=== PATIENT | female | born 1980 | race Caucasian/White ===

== ENCOUNTER 2016-08-04 14:08 | Emergency (ER) | payer MEDICAID ==
[2016-08-04 14:37] VITALS: BP 123/68
--- NOTE | 2016-08-04 14:45 | ER Document Report ---
ED Medical Screen (RME) - General Stated Complaint: KNEE PAIN Mode of Arrival: Ambulatory Information source: Patient Notes: Patient complains of left knee pain for the past 3 days. Patient complains of swelling to the popliteal area. Patient denies any injury. Patient does report a history of arthritis. Patient complains of generalized fatigue as well as swollen lymph nodes in the neck for the past month. Patient also complains of vaginal discharge. Pt additionally c/o right foot pain with walking. Pt has seen her doctor, but has not been happy with his evaluation of her complaints. hx: Diabetes I have greeted and performed a rapid initial assessment of this patient. A comprehensive ED assessment and evaluation of the patient, analysis of test results and completion of the medical decision making process will be conducted by additional ED providers. TRAVEL OUTSIDE OF THE [place] IN LAST 30 DAYS: No - Related Data Allergies/Adverse Reactions: erythromycin base [Erythromycin Base] Allergy (Verified 05/29/16 20:25) Past Medical History - Past Medical History Cardiac Medical History: Reports: Hx Hypertension Endocrine Medical History: Reports: Hx Diabetes Mellitus Type 2 Musculoskeltal Medical History: Reports Hx Arthritis - bilat knee, left ankle, bilat hand Psychiatric Medical History: Reports: Hx Anxiety, Hx Depression - anxiety Past Surgical History: Reports: Hx Kidney (Renal Surgery) - L stents, removed, Hx Orthopedic Surgery - right great toe amputation - Immunizations Immunizations up to date: No Hx Diphtheria, Pertussis, Tetanus Vaccination: Yes Physical Exam - Vital signs Vitals: Temp Pulse Resp BP Pulse Ox 98.0 F 72 20 123/68 98 08/04/16 14:34 08/04/16 14:34 08/04/16 14:34 08/04/16 14:34 08/04/16 14:34 - Extremities General lower extremity: Tender - Left knee Course - Vital Signs Vital signs: Temp Pulse Resp BP Pulse Ox 98.0 F 72 20 123/68 98 08/04/16 14:34 08/04/16 14:34 08/04/16 14:34 08/04/16 14:34 08/04/16 14:34
--- NOTE | 2016-08-04 17:06 | ER Document Report ---
HPI - HPI Patient complains to provider of: KNEE PAIN Pain Level: 3 Context: Patient presents to the emergency department with complaints of left knee pain. As soon as I came in the room to talk the patient she began stating she wants to leave. She was very frustrated with her wait. She reports she's been moved from room to room and nothing has been done. She just wants work note wants to leave. - REPRODUCTIVE Reproductive: DENIES: : - DERM Skin Color: Normal Past Medical History - General Information source: Patient - Social History Smoking Status: Current Every Day Smoker Chew tobacco use (# tins/day): No Frequency of alcohol use: Occasional Drug Abuse: None Family History: Reviewed & Not Pertinent Patient has suicidal ideation: No Patient has homicidal ideation: No - Past Medical History Cardiac Medical History: Reports: Hx Hypertension Endocrine Medical History: Reports: Hx Diabetes Mellitus Type 2 Renal/ Medical History: Denies: Hx Peritoneal Dialysis Musculoskeltal Medical History: Reports Hx Arthritis - bilat knee, left ankle, bilat hand Psychiatric Medical History: Reports: Hx Anxiety, Hx Depression - anxiety Past Surgical History: Reports: Hx Kidney (Renal Surgery) - L stents, removed, Hx Orthopedic Surgery - right great toe amputation - Immunizations Immunizations up to date: No Hx Diphtheria, Pertussis, Tetanus Vaccination: Yes Vertical Provider Document - CONSTITUTIONAL Agree With Documented VS: Yes Exam Limitations: No Limitations General Appearance: No Apparent Distress - INFECTION CONTROL TRAVEL OUTSIDE OF THE [place] IN LAST 30 DAYS: No - HEENT HEENT: Atraumatic, Normocephalic - NECK Neck: Supple - RESPIRATORY Respiratory: No Respiratory Distress O2 Sat by Pulse Oximetry: 98 - CARDIOVASCULAR Cardiovascular: Regular Rate Course - Re-evaluation Re-evalutation: 08/04/16 17:10 Patient was very upset upon arrival to her room. There was nothing I could say or do to get her to stay. I instructed patient that we're very happy to take care of her I apologize for the wait. She reported that they tried to take her to xray without a test. Tried to reassure patient that we would shield her for her knee x-ray but she was not listening to me. No physical exam was done. pt to check out ama. I have consulted the attending provider dr garcia per [facility] guidelines - Vital Signs Vital signs: Temp Pulse Resp BP Pulse Ox 98.0 F 72 20 123/68 98 08/04/16 14:34 08/04/16 14:34 08/04/16 14:34 08/04/16 14:34 08/04/16 14:34 Discharge - Discharge Clinical Impression: Elevated blood pressure reading Knee pain Qualifiers: Laterality: left Chronicity: unspecified Qualified Code(s): M25.562 - Pain in left knee Condition: Stable Disposition: AGAINST MEDICAL ADVICE Additional Instructions: *You have been evaluated for knee pain *Monitor your blood pressure. Your blood pressure was elevated today. This may be because you were anxious, in pain or because you need medication. It is important to follow up with your primary care provider for full evaluation. *your exam wan not completed *Follow up with your primary care provider for evaluation this week *Take ibuprofen as indicated for pain *Return to ED for worsening condition, changes, needs Forms: Elevated Blood Pressure, Return to Work
[2016-08-04 17:17] LABS: APPEARANCE,URINE CLEAR; BILIRUBIN,URINE NEGATIVE (NEGATIVE); GLUCOSE, URINE NEGATIVE (NEGATIVE); KETONES,URINE NEGATIVE (NEGATIVE); LEUKOCYTE ESTERASE,URINE NEGATIVE (NEGATIVE); NITRITE,URINE NEGATIVE (NEGATIVE); PROTEIN,URINE NEGATIVE (NEGATIVE); URINE SPECIFIC GRAVITY 1.005; UROBILINOGEN,URINE NEGATIVE mg/dL (<2.0)
== END 2016-08-04 17:17 | disposition left against medical advice (07) ==
LOC: ER 14:08
DX: R03.0 Elevated blood-pressure reading, without diagnosis of hypertension (principal); M25.562 Pain in left knee; F17.200 Nicotine dependence, unspecified, uncomplicated; I10 Essential (primary) hypertension; E11.9 Type 2 diabetes mellitus without complications
CPT/HCPCS: 81001; 81025; 82962; 99283

== ENCOUNTER 2016-08-17 09:38 | Emergency (ER) | payer MEDICAID ==
[2016-08-17 09:44] VITALS: BP 136/80
[2016-08-17] MEDS ORDERED: ONDANSETRON 4 MG TAB.RAPDIS PO ONE (10:25)
--- NOTE | 2016-08-17 10:25 | ER Document Report ---
HPI - HPI Patient complains to provider of: nausea vomiting and diarrhea Onset: This morning Onset/Duration: Better Quality of pain: Cramping Pain Level: 3 Context: 35-year-old female developed nausea vomiting and diarrhea when she was at work this morning that made her go home. She states she has to go back to work. No abdominal pain at this time. The Zofran was just given that I ordered. Associated Symptoms: None Exacerbated by: Denies Relieved by: Denies Similar symptoms previously: No Recently seen / treated by doctor: No - ROS ROS below otherwise negative: Yes Systems Reviewed and Negative: Yes All other systems reviewed and negative - REPRODUCTIVE Reproductive: DENIES: : - DERM Skin Color: Normal Past Medical History - General Information source: Patient - Social History Smoking Status: Current Every Day Smoker Chew tobacco use (# tins/day): No Frequency of alcohol use: Occasional Drug Abuse: None Lives with: Family Family History: Reviewed & Not Pertinent Patient has suicidal ideation: No Patient has homicidal ideation: No - Past Medical History Cardiac Medical History: Reports: Hx Hypertension Endocrine Medical History: Reports: Hx Diabetes Mellitus Type 2 Renal/ Medical History: Denies: Hx Peritoneal Dialysis Musculoskeltal Medical History: Reports Hx Arthritis - bilat knee, left ankle, bilat hand Psychiatric Medical History: Reports: Hx Anxiety, Hx Depression - anxiety Past Surgical History: Reports: Hx Kidney (Renal Surgery) - L stents, removed, Hx Orthopedic Surgery - right great toe amputation - Immunizations Immunizations up to date: No Hx Diphtheria, Pertussis, Tetanus Vaccination: Yes Vertical Provider Document - CONSTITUTIONAL Agree With Documented VS: Yes Exam Limitations: No Limitations - INFECTION CONTROL TRAVEL OUTSIDE OF THE [place] IN LAST 30 DAYS: No - HEENT HEENT: Normocephalic. negative: Conjuctival Injection, Pharyngeal Erythema - NECK Neck: Supple. negative: Lymphadenopathy-Left, Lymphadenopathy-Right - RESPIRATORY Respiratory: Breath Sounds Normal, No Respiratory Distress O2 Sat by Pulse Oximetry: 98 - CARDIOVASCULAR Cardiovascular: Regular Rate, Regular Rhythm - GI/ABDOMEN Gastrointestinal: Abdomen Soft, Abdomen Non-Tender, No Organomegaly - MUSCULOSKELETAL/EXTREMETIES Musculoskeletal/Extremeties: MALISSA BARBOSA - NEURO Level of Consciousness: Awake, Alert Motor/Sensory: No Motor Deficit, No Sensory Deficit - DERM Integumentary: Warm, Dry, No Rash Course - Vital Signs Vital signs: Temp Pulse Resp BP Pulse Ox 97.9 F 84 16 136/80 H 98 08/17/16 09:44 08/17/16 09:44 08/17/16 09:44 08/17/16 09:44 08/17/16 09:44 Discharge - Discharge Clinical Impression: Vomiting and diarrhea Condition: Good Disposition: HOME, SELF-CARE Instructions: Vomiting ([facility]), Diarrhea, Nonspecific ([facility]), Antinausea Medication ([facility]) Additional Instructions: Drink plenty of fluids Advance diet as tolerated Return to the emergency room if worse Prescriptions: Ondansetron HCl [Zofran 4 mg Tablet] 1 - 2 tab PO Q4H PRN #30 tablet PRN Reason: Forms: Return to Work Referrals: CARLINE FLOOD MD [Primary Care Provider] - Follow up as needed
== END 2016-08-17 10:55 | disposition home or self-care (01) ==
LOC: ER 09:38
DX: R11.2 Nausea with vomiting, unspecified (principal); R19.7 Diarrhea, unspecified; F17.200 Nicotine dependence, unspecified, uncomplicated; I10 Essential (primary) hypertension; E11.9 Type 2 diabetes mellitus without complications
CPT/HCPCS: 99283; S0119

== ENCOUNTER 2016-09-01 21:19 | Emergency (ER) | payer MEDICAID ==
--- NOTE | 2016-09-01 22:54 | ER Document Report ---
ED Medical Screen (RME) - General Stated Complaint: ABDOMINAL PAIN/VAGINAL BLEEDING Notes: 35 yo female c/o vaginal bleeding x 2 weeks, lower abdominal pain. Pt taking oral contraception as prescribed. + urinary frequency. no fever. + nausea, no vomiting. pt has hx/o DM, psoriatic arthritis abdomen soft, mild suprapubic and LLQ tenderness. TRAVEL OUTSIDE OF THE [place] IN LAST 30 DAYS: No - Related Data Allergies/Adverse Reactions: erythromycin base [Erythromycin Base] Allergy (Verified 08/17/16 09:42) Past Medical History - Past Medical History Cardiac Medical History: Reports: Hx Hypertension Endocrine Medical History: Reports: Hx Diabetes Mellitus Type 2 Renal/ Medical History: Denies: Hx Peritoneal Dialysis Musculoskeltal Medical History: Reports Hx Arthritis - bilat knee, left ankle, bilat hand Psychiatric Medical History: Reports: Hx Anxiety, Hx Depression - anxiety Past Surgical History: Reports: Hx Kidney (Renal Surgery) - L stents, removed, Hx Orthopedic Surgery - right great toe amputation - Immunizations Immunizations up to date: No Hx Diphtheria, Pertussis, Tetanus Vaccination: Yes
[2016-09-01 23:24] LABS: ABSOLUTE BASOPHILS # (AUTO) 0.1 10^3/uL (0.0-0.2); ABSOLUTE EOSINOPHILS # (AUTO) 0.1 10^3/uL (0.0-0.6); ABSOLUTE LYMPHOCYTES (AUTO) 2.9 10^3/uL (0.5-4.7); ABSOLUTE MONOCYTES (AUTO) 0.6 10^3/uL (0.1-1.4); ABSOLUTE NEUT (AUTO) 9.5 10^3/uL (1.7-8.2); BASOPHILS % (AUTO) 0.4 % (0-2); EOSINOPHILS % (AUTO) 1.1 % (0-6); HEMATOCRIT 39.1 % (36.0-47.0); HEMOGLOBIN 13.1 g/dL (12.0-15.5); HGB HCT DIFFERENCE 0.2; MEAN CORPUSCULAR HEMOGLOBIN 28.6 pg (27.0-33.4); MEAN CORPUSCULAR HGB CONC 33.6 g/dL (32.0-36.0); MEAN CORPUSCULAR VOLUME 85 fl (80-97); MONOCYTES % (AUTO) 4.5 % (3-13); RED BLOOD COUNT 4.59 10^6/uL (3.72-5.28); WHITE BLOOD COUNT 13.2 10^3/uL (4.0-10.5)
[2016-09-01 23:38] LABS: APPEARANCE,URINE CLEAR; BILIRUBIN,URINE NEGATIVE (NEGATIVE); GLUCOSE, URINE NEGATIVE (NEGATIVE); KETONES,URINE NEGATIVE (NEGATIVE); LEUKOCYTE ESTERASE,URINE TRACE (NEGATIVE); NITRITE,URINE NEGATIVE (NEGATIVE); PROTEIN,URINE NEGATIVE (NEGATIVE); URINE SPECIFIC GRAVITY 1.005; UROBILINOGEN,URINE NEGATIVE mg/dL (<2.0)
--- NOTE | 2016-09-02 00:22 | ER Document Report ---
ED General - General Chief Complaint: Vaginal Bleeding Stated Complaint: ABDOMINAL PAIN/VAGINAL BLEEDING Notes: Patient is 35-year-old female presents with complaint of vaginal bleeding and stomach cramping. She says the pain in her stomach is like a typical menstrual cramp. She is currently on oral control and has been on it for a while. Patient denies any fevers. No infections. No abnormal vaginal discharge. Her last menstrual period was 2 weeks ago. She bled for a few days and then stop bleeding for several days. She then started bleeding again a week ago and is continued to bleed. There's been no clots. No fevers. No vomiting. This is her sixth . She has 3 live children. She had one elective . She had one miscarriage. TRAVEL OUTSIDE OF THE [place] IN LAST 30 DAYS: No - Related Data Allergies/Adverse Reactions: erythromycin base [Erythromycin Base] Allergy (Verified 09/01/16 22:54) Past Medical History - Social History Smoking Status: Current Every Day Smoker Chew tobacco use (# tins/day): No Frequency of alcohol use: Occasional Drug Abuse: None Family History: Reviewed & Not Pertinent Patient has suicidal ideation: No Patient has homicidal ideation: No - Past Medical History Cardiac Medical History: Reports: Hx Hypertension Endocrine Medical History: Reports: Hx Diabetes Mellitus Type 2 Renal/ Medical History: Denies: Hx Peritoneal Dialysis Musculoskeltal Medical History: Reports Hx Arthritis - bilat knee, left ankle, bilat hand Psychiatric Medical History: Reports: Hx Anxiety, Hx Depression - anxiety Past Surgical History: Reports: Hx Kidney (Renal Surgery) - L stents, removed, Hx Orthopedic Surgery - right great toe amputation - Immunizations Immunizations up to date: No Hx Diphtheria, Pertussis, Tetanus Vaccination: Yes Review of Systems - Review of Systems Notes: My Normal Review Basic REVIEW OF SYSTEMS: CONSTITUTIONAL : Denies fever, chills, or sweats. Denies recent illness. EENT: Denies eye, ear, throat, or mouth pain or symptoms. Denies nasal or sinus congestion. RESPIRATORY: Denies cough, cold, or chest congestion. Denies shortness of breath, difficulty breathing, or wheezing. GASTROINTESTINAL: Denies abdominal pain. Denies nausea, vomiting, or diarrhea. Denies constipation. Last BM: GENITOURINARY: Denies difficulty urinating, painful urination, burning, frequency, or blood in urine. FEMALE GENITOURINARY: Vaginal bleeding. MUSCULOSKELETAL: Denies neck or back pain or joint pain or swelling. SKIN: Denies rash or skin lesions. HEMATOLOGIC : Denies easy bruising or bleeding. NEUROLOGICAL: Denies altered mental status or loss of consciousness. Denies headache. Denies weakness or paralysis or loss of use of either side. Denies problems with gait or speech. Denies sensory or motor loss. ALL OTHER SYSTEMS REVIEWED AND NEGATIVE. Physical Exam - Vital signs Vitals: Temp Pulse Resp BP Pulse Ox 98.1 F 72 16 124/65 100 09/01/16 22:50 09/01/16 22:50 09/01/16 22:50 09/01/16 22:50 09/01/16 22:50 - Notes Notes: General Appearance: Well nourished, alert, cooperative, no acute distress, no obvious discomfort. Vitals: reviewed, See vital signs table. Head: no swelling or tenderness to the head Eyes: PERRL, EOMI, Conjuctiva clear Mouth: No decreasd moisture Neck: Supple, no neck tenderness, No thyromegaly Lungs: No wheezing, No rales, No rhonci, No accessory muscle use, good air exchange bilaterally. Heart: Normal rate, Regular rythm, No murmur, no rub Abdomen: Normal BS, soft, No rigidity, No abdominal tenderness, No guarding, no rebound, no abdominal masses, no organomegaly Pelvic exam: Normal external genitalia. Cervix is soft. It is partially closed. Small to moderate blood in vaginal vault. Extremities: strength 5/5 in all extremities, good pulses in all extremities, no swelling or tenderness in the extremities, no edema. Skin: warm, dry, appropriate color, no rash Neuro: speech clear, oriented x 3, normal affect, responds appropriately to questions. Course - Vital Signs Vital signs: Temp Pulse Resp BP Pulse Ox 98.1 F 72 16 124/65 100 09/01/16 22:50 09/01/16 22:50 09/01/16 22:50 09/01/16 22:50 09/01/16 22:50 - Laboratory Result Diagrams: 09/01/16 23:08 09/02/16 01:05 Laboratory results interpreted by me: 09/01/16 09/01/16 09/01/16 23:08 23:08 23:08 WBC 13.2 H Absolute Neutrophils 9.5 H Calcium Total Protein Serum HCG, Qual POSITIVE H Beta HCG, Quant Urine Blood LARGE H Ur Leukocyte Esterase TRACE H 09/02/16 01:05 WBC Absolute Neutrophils Calcium 10.8 H Total Protein 8.5 H Serum HCG, Qual Beta HCG, Quant 754.74 H Urine Blood Ur Leukocyte Esterase - Transfer of Care Notes: 09/02/16 02:27 Patient's ultrasound did not show each uterine or extra in . I suspect that she most likely is having a miscarriage in October of our a past based on the amount of bleeding that she's been having. She may also have a very early but this is unlikely with amount of bleeding she is having. Her hCG levels only 734. Is also slight possibly she have an ectopic but this is also less likely. I explained all this to the patient verbally. She is understanding of this. I explained to her the importance of having her hCG level rechecked in 3 days. She agrees to have this performed. I encourage her to return to ER medially if she has heavy bleeding, severe pain, or feels unwell. Patient will be given Rhogam. Dictation of this chart was performed using voice recognition software; therefore, there may be some unintended grammatical errors. Discharge - Discharge Clinical Impression: Vaginal bleeding in Qualifiers: Trimester: first trimester Qualified Code(s): O46.91 - Antepartum hemorrhage, unspecified, first trimester Condition: Good Disposition: HOME, SELF-CARE Additional Instructions: Your beta hCG ( hormone level) is 734. Your ultrasound cannot see a at this time. With amount of bleeding that you have this most likely suggest that you have a miscarriage. There is still a chance he could have an ectopic . This is much less likely however not of the complete realm a possibility. There is also small possibility that you could have a that is just not showing up on ultrasound. Because of this and certainly it's very important that you have your hCG level rechecked in 3 days. You can follow -up with her doctor or come back here to have this performed. You must return to ER immediately if you have worsening pain, heavy bleeding, or fevers. Forms: Return to Work
[2016-09-02 01:47] LABS: ALANINE AMINOTRANSFERASE 30 U/L (9-52); ALKALINE PHOSPHATASE 65 U/L (38-126); ANION GAP 13 (5-19); ASPARTATE AMINO TRANSFERASE 16 U/L (14-36); BILIRUBIN,TOTAL 0.7 mg/dL (0.2-1.3); BLOOD UREA NITROGEN 10 mg/dL (7-20); CALCIUM 10.8 mg/dL (8.4-10.2); CARBON DIOXIDE 27 mmol/L (22-30); CHLORIDE 101 mmol/L (98-107); CREATININE RESULT 0.63 mg/dL (0.52-1.25); GLUCOSE 84 mg/dL (75-110); LIPASE 65.6 U/L (23-300); POTASSIUM 4.8 mmol/L (3.6-5.0); SODIUM 140.6 mmol/L (137-145); TOTAL PROTEIN 8.5 g/dL (6.3-8.2)
[2016-09-02 03:13] VITALS: BP 122/74
== END 2016-09-02 03:08 | disposition home or self-care (01) ==
LOC: ER 21:19
DX: O20.9 Hemorrhage in early pregnancy, unspecified (principal); O26.891 Other specified pregnancy related conditions, first trimester; R10.9 Unspecified abdominal pain; O99.331 Smoking (tobacco) complicating pregnancy, first trimester; F17.200 Nicotine dependence, unspecified, uncomplicated; O10.911 Unspecified pre-existing hypertension complicating pregnancy, first trimester; O24.111 Pre-existing type 2 diabetes mellitus, in pregnancy, first trimester; E11.9 Type 2 diabetes mellitus without complications; Z3A.01 Less than 8 weeks gestation of pregnancy; Z79.3 Long term (current) use of hormonal contraceptives
CPT/HCPCS: 99284; 86900; 86901; 36415; 86850; 84702; 83690; 84703; 85025; 80053; 81001; 76817; 93976; J2790

== ENCOUNTER → 2016-09-06 | Outpatient (CLI) | payer MEDICAID | LOC: OD 11:59 | PROVIDERS: ATTEND Family Medicine | DX: Z34.81 Encounter for supervision of other normal pregnancy, first trimester (principal) | CPT/HCPCS: 36415; 84702 ==

== ENCOUNTER 2016-09-09 16:47 | Day surgery (SDC) | payer MEDICAID ==
[~2016-09-09 16:47] MED LIST: GLYCOPYRROLATE INJ 0.4 MG/2 ML VIAL ONE; METOCLOPRAMIDE HCL INJ/PF 10 MG/2 ML SDV ONE; NEOSTIGMINE METHYLSULFATE 10 MG/10 ML VIAL ONE; ONDANSETRON HCL INJ/PF 4 MG/2 ML SDV ONE; PHENYLEPHRINE HCL INJ/PF 10 MG/1 ML SDV ONE; ROCURONIUM BROMIDE INJ 50 MG/5 ML VIAL IV ONE; SUCCINYLCHOLINE CHLORIDE INJ 200 MG/10 ML VIAL ONE
[2016-09-09] MEDS ORDERED: RINGERS SOLUTION,LACTATED 1,000 ML IV PRN ×2 (17:29→21:33)
[2016-09-09 17:43] LABS: ABSOLUTE EOSINOPHILS # (AUTO) 0.1 10^3/uL (0.0-0.6); ABSOLUTE LYMPHOCYTES (AUTO) 2.2 10^3/uL (0.5-4.7); ABSOLUTE MONOCYTES (AUTO) 0.6 10^3/uL (0.1-1.4); ABSOLUTE NEUT (AUTO) 7.6 10^3/uL (1.7-8.2); BASOPHILS % (AUTO) 0.3 % (0-2); EOSINOPHILS % (AUTO) 1.1 % (0-6); HEMATOCRIT 39.9 % (36.0-47.0); HEMOGLOBIN 13.5 g/dL (12.0-15.5); HGB HCT DIFFERENCE 0.6; LYMPHOCYTES % (AUTO) 21.1 % (13-45); MEAN CORPUSCULAR HEMOGLOBIN 28.8 pg (27.0-33.4); MEAN CORPUSCULAR VOLUME 85 fl (80-97); MONOCYTES % (AUTO) 5.8 % (3-13); RED BLOOD COUNT 4.71 10^6/uL (3.72-5.28); SEGMENTED NEUTROPHILS % (AUTO) 71.7 % (42-78); WHITE BLOOD COUNT 10.6 10^3/uL (4.0-10.5)
[2016-09-09] MEDS ORDERED: CEFAZOLIN 1 GM/D5W RTU 1 GM/50 ML RTUPB IV PRN (17:45)
[2016-09-09] MEDS ORDERED: BUPIVACAINE HCL 0.25 % INJ/PF (2.5 MG/1 ML) 30 ML VIAL ONE (17:49)
[2016-09-09] MEDS ORDERED: MIDAZOLAM 2 MG/2 ML INJ ONE (18:06)
[2016-09-09] MEDS ORDERED: ACETAMINOPHEN 100 ML IV ONE (18:06)
[2016-09-09] MEDS ORDERED: FENTANYL CITRATE INJ/PF 250 MCG/5 ML AMPULE ONE (18:06)
[2016-09-09] MEDS ORDERED: PROPOFOL INJ 200 MG/20 ML VIAL IV ONE (18:06)
[2016-09-09] MEDS ORDERED: MORPHINE SULFATE 10 MG/ML INJ ONE (18:07)
[2016-09-09] MEDS ORDERED: DIPHENHYDRAMINE HCL 50 MG/ML VIAL IV PRN (19:02)
[2016-09-09] MEDS ORDERED: MEPERIDINE HCL/PF INJ 25 MG/1 ML DISP.SYRIN IV PRN (19:02)
[2016-09-09] MEDS ORDERED: PROMETHAZINE HCL INJ 25 MG/1 ML VIAL IV PRN ×2 (19:02)
[2016-09-09] MEDS ORDERED: MORPHINE SULFATE 10 MG/ML INJ IV PRN (19:02)
[2016-09-09] MEDS ORDERED: FENTANYL CITRATE INJ/PF 100 MCG/2 ML AMPUL IV PRN ×3 (19:02)
[2016-09-09] MEDS: FENTANYL CITRATE INJ/PF 100 MCG/2 ML AMPUL ONE ×2 (19:55→20:12)
[2016-09-09] MEDS ORDERED: KETOROLAC TROMETHAMINE INJ/PF 30 MG/1 ML SDV ONE (20:53)
[2016-09-09] MEDS ORDERED: OXYCODONE-ACETAMINOPHEN 5-325 MG TABLET PO PRN (21:32)
[2016-09-09] MEDS: OXYCODONE-ACETAMINOPHEN 5-325 MG TABLET PO PRN (22:17)
[2016-09-09] MEDS ORDERED: CLONAZEPAM 1 MG TABLET PO PRN (22:23)
[2016-09-09] MEDS ORDERED: ZOLPIDEM TARTRATE 5 MG TABLET ONE (23:01)
[2016-09-10] MEDS: OXYCODONE-ACETAMINOPHEN 5-325 MG TABLET PO PRN ×2 (02:32→07:23)
[2016-09-10 09:26] VITALS: BP 130/82
[2016-09-10] MEDS ORDERED: LISINOPRIL 10 MG TABLET PO SCH (10:00)
[2016-09-10] MEDS ORDERED: (PENDING PHARMACY ID) (Lisinopril [Zestril] 20 MG) PO SCH (10:00)
[2016-09-10] MEDS ORDERED: IBUPROFEN 600 MG TABLET PO SCH (10:00)
--- NOTE | 2016-09-10 13:51 | OPERATIVE REPORT E ---
Operative Report NAME: SALIMA DANIELLE : 1980 AGE: 35Y DATE OF SURGERY: 09/09/2016 ROOM: 228 PREOPERATIVE DIAGNOSES: 1. Ectopic . 2. Undesired fertility. POSTOPERATIVE DIAGNOSES: 1. Ectopic . 2. Undesired fertility. OPERATION: Laparoscopic right salpingectomy and left tubal ligation with Filshie clip. SURGEON: DON SENIOR M.D. ANESTHESIA: General endotracheal. ESTIMATED BLOOD LOSS: 20 mL. TISSUE REMOVED OR ALTERED: Specimen to Pathology: Right fallopian tube containing ectopic. FINDINGS: There was a small amount of blood in the pelvis, approximately 50 to 100 mL. There was a right ectopic in the right fallopian tube. There were adhesions at the posterior aspect of the uterus to the rectosigmoid with changes consistent with endometriosis. There were also some filmy adhesions in the anterior cul-de-sac. The left tube and ovary appeared normal. DESCRIPTION OF PROCEDURE: After discussing risks, benefits, and alternatives of the procedure and obtaining informed consent, the patient was taken to the operating room where general anesthesia was achieved. She was positioned in the dorsal lithotomy position, prepped and draped in the usual standard fashion. Bladder was drained via in-and-out catheterization. A speculum was placed in the vagina and a Proxio uterine manipulator placed. The speculum was removed. Attention was turned to the patient's abdomen. The inferior aspect of the umbilicus was grasped with Allis clamps. The trocar sites were all premedicated with 0.25% Marcaine with epinephrine. A 10 mm incision was made in the infraumbilical fold. The abdomen was entered sharply under direct visualization. An Origin trocar was placed under direct visualization and the balloon insufflated. The abdomen was insufflated and the patient placed in Trendelenburg. The pelvis was surveyed with the findings noted above. A right lower quadrant 8 mm trocar was placed under direct visualization as well as an 8 mm suprapubic trocar. After placement of the trocars, the pelvis was surveyed with the findings noted above. A Filshie clip was placed across the isthmic portion of the left fallopian tube. The LigaSure device was called for, and the ectopic was removed using a combination of cut and COAG to perform salpingectomy on the patient's right. Excellent hemostasis was observed. The camera was placed in the right lower quadrant trocar, and an EndoCatch bag was placed through the umbilical trocar. The ectopic was delivered into the EndoCatch bag and it was removed through the umbilical port site. The Origin trocar was then replaced. The pelvis was irrigated and hemostasis again assured under low pressure. The trocars were then removed under direct visualization from the suprapubic and right lower quadrant sites. The abdomen was completely desufflated and the Origin trocar removed. The fascia at the umbilicus was closed with #0-Vicryl. This was done in an interrupted fashion. The skin incisions were closed with 3-0 Vicryl in a subcuticular fashion and bandages applied. The Hulka uterine manipulator was removed and hemostasis assured at the tenaculum site. The patient was taken out of dorsal lithotomy, extubated, and to recovery in stable condition. All sponge, needle, lap, and instrument counts were correct x2. DICTATING PHYSICIAN: DON SENIOR M.D. [id number] Y#: [id number] ID: [id number] JOB#: [id number] ACCT: [id number] cc:DON SENIOR M.D. >
[2016-09-10] MEDS ORDERED: ZOLPIDEM TARTRATE 5 MG TABLET PO SCH (22:00)
== END 2016-09-10 09:58 | disposition home or self-care (01) ==
LOC: UNDOADMIN 16:47 → 2S 16:47 → OROUT 16:47 → UNDODISIN 09-10 09:58 → EDSTATUS 09-10 13:55
PROVIDERS: ATTEND Obstetrics & Gynecology
PROC: 0UT54ZZ Resection of Right Fallopian Tube, Percutaneous Endoscopic Approach (ICD-10-PCS; 2016-09-09)
PROC: 0UL Female Reproductive System, Occlusion (ICD-10-PCS; 2016-09-09)
PROC: 10T24ZZ Resection of Products of Conception, Ectopic, Percutaneous Endoscopic Approach (ICD-10-PCS; principal; 2016-09-09 18:00)
DX: I10 Essential (primary) hypertension (principal); N73.6 Female pelvic peritoneal adhesions (postinfective); E11.9 Type 2 diabetes mellitus without complications; F32.9 Major depressive disorder, single episode, unspecified; F41.9 Anxiety disorder, unspecified; F17.210 Nicotine dependence, cigarettes, uncomplicated; Z79.84 Long term (current) use of oral hypoglycemic drugs; Z79.899 Other long term (current) drug therapy; Z79.1 Long term (current) use of non-steroidal anti-inflammatories (NSAID); Z88.1 Allergy status to other antibiotic agents
CPT/HCPCS: 86900; 86901; 36415; 86870; 86850; 82962; 85025; 88305 ×2; 59151; 58671; J2250; J0690; J3490 ×4; J3010 ×2; J1885; J2765; J2270; J2370; J0330; J2405; S0020; J2704; J0131; 840

== ENCOUNTER 2016-09-16 11:10 | Emergency (ER) | payer OTHER, MEDICAID ==
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
[2016-09-16 11:23] VITALS: BP 115/68
[2016-09-16] MEDS ORDERED: ACETAMINOPHEN 325 MG TABLET PO ONE (11:27)
[2016-09-16 11:47] LABS: ABSOLUTE BASOPHILS # (AUTO) 0.1 10^3/uL (0.0-0.2); ABSOLUTE EOSINOPHILS # (AUTO) 0.2 10^3/uL (0.0-0.6); ABSOLUTE LYMPHOCYTES (AUTO) 1.4 10^3/uL (0.5-4.7); ABSOLUTE MONOCYTES (AUTO) 0.4 10^3/uL (0.1-1.4); ABSOLUTE NEUT (AUTO) 7.6 10^3/uL (1.7-8.2); BASOPHILS % (AUTO) 0.7 % (0-2); EOSINOPHILS % (AUTO) 1.7 % (0-6); HEMATOCRIT 37.8 % (36.0-47.0); HEMOGLOBIN 12.9 g/dL (12.0-15.5); HGB HCT DIFFERENCE 0.9; LYMPHOCYTES % (AUTO) 14.6 % (13-45); MEAN CORPUSCULAR HEMOGLOBIN 29.1 pg (27.0-33.4); MEAN CORPUSCULAR HGB CONC 34.1 g/dL (32.0-36.0); MEAN CORPUSCULAR VOLUME 85 fl (80-97); MONOCYTES % (AUTO) 4.6 % (3-13); RED BLOOD COUNT 4.44 10^6/uL (3.72-5.28); SEGMENTED NEUTROPHILS % (AUTO) 78.4 % (42-78); WHITE BLOOD COUNT 9.7 10^3/uL (4.0-10.5)
[2016-09-16 12:11] LABS: ALANINE AMINOTRANSFERASE 33 U/L (9-52); ALKALINE PHOSPHATASE 45 U/L (38-126); ANION GAP 9 (5-19); ASPARTATE AMINO TRANSFERASE 19 U/L (14-36); BILIRUBIN,DIRECT 0.2 mg/dL (0.0-0.4); BILIRUBIN,TOTAL 0.6 mg/dL (0.2-1.3); BLOOD UREA NITROGEN 13 mg/dL (7-20); CALCIUM 9.5 mg/dL (8.4-10.2); CARBON DIOXIDE 28 mmol/L (22-30); CHLORIDE 104 mmol/L (98-107); CREATININE RESULT 0.61 mg/dL (0.52-1.25); GLUCOSE 98 mg/dL (75-110); POTASSIUM 4.8 mmol/L (3.6-5.0); SODIUM 141.3 mmol/L (137-145); TOTAL PROTEIN 6.6 g/dL (6.3-8.2)
[2016-09-16 13:54] LABS: APPEARANCE,URINE SLIGHTLY-CLOUDY; BILIRUBIN,URINE NEGATIVE (NEGATIVE); GLUCOSE, URINE NEGATIVE (NEGATIVE); KETONES,URINE NEGATIVE (NEGATIVE); LEUKOCYTE ESTERASE,URINE SMALL (NEGATIVE); NITRITE,URINE NEGATIVE (NEGATIVE); PROTEIN,URINE 30 mg/dL (NEGATIVE); URINE SPECIFIC GRAVITY 1.026
== END 2016-09-16 14:00 | disposition left against medical advice (07) ==
LOC: ER 11:10
DX: Z53.9 Procedure and treatment not carried out, unspecified reason (principal); R10.9 Unspecified abdominal pain; R55 Syncope and collapse; V87.7XXA Person injured in collision between other specified motor vehicles (traffic), initial encounter
CPT/HCPCS: 36415; 80053; 81001; 84702; 85025; 99281

== ENCOUNTER 2017-02-27 16:11 | Emergency (ER) | payer SELFPAY ==
[2017-02-27 16:27] VITALS: BP 132/85
--- NOTE | 2017-02-27 17:17 | ER Document Report ---
ED Medical Screen (RME) - General Chief Complaint: Abdominal Pain Stated Complaint: ABDOMINAL PAIN Time Seen by Provider: 02/27/17 17:13 Mode of Arrival: Ambulatory Information source: Patient Notes: 36-year-old female with no prior medical problems who presents to the emergency room with left lower quadrant tenderness. Patient does state she has had some lower back discomfort as well. Patient does report having a vaginal discharge. Patient has had a history of an ectopic with removal of the right fallopian tube. She had a left fallopian tube ligation at that time. She states she has had intermittent pain since that time (5 months ago). TRAVEL OUTSIDE OF THE [place] IN LAST 30 DAYS: No - Related Data Allergies/Adverse Reactions: latex Allergy (Unknown, Verified 02/27/17 16:27) erythromycin base [Erythromycin Base] Allergy (Verified 02/27/17 16:27) Past Medical History - Social History Chew tobacco use (# tins/day): No Frequency of alcohol use: None Drug Abuse: None - Past Medical History Cardiac Medical History: Reports: Hx Hypertension Endocrine Medical History: Reports: Hx Diabetes Mellitus Type 2 Renal/ Medical History: Denies: Hx Peritoneal Dialysis Musculoskeltal Medical History: Reports Hx Arthritis - bilat knee, left ankle, bilat hand Psychiatric Medical History: Reports: Hx Anxiety, Hx Depression - anxiety Past Surgical History: Reports: Hx Kidney (Renal Surgery) - L stents, removed, Hx Orthopedic Surgery - right great toe amputation - Immunizations Immunizations up to date: No Hx Diphtheria, Pertussis, Tetanus Vaccination: Yes Physical Exam - Vital signs Vitals: Temp Pulse Resp BP Pulse Ox 99.0 F 72 18 132/85 H 98 02/27/17 16:26 02/27/17 16:26 02/27/17 16:26 02/27/17 16:26 02/27/17 16:26 Course - Vital Signs Vital signs: Temp Pulse Resp BP Pulse Ox 99.0 F 72 18 132/85 H 98 02/27/17 16:26 02/27/17 16:26 02/27/17 16:26 02/27/17 16:26 02/27/17 16:26
[2017-02-27 17:39] LABS: ABSOLUTE BASOPHILS # (AUTO) 0.1 10^3/uL (0.0-0.2); ABSOLUTE EOSINOPHILS # (AUTO) 0.1 10^3/uL (0.0-0.6); ABSOLUTE LYMPHOCYTES (AUTO) 2.3 10^3/uL (0.5-4.7); ABSOLUTE MONOCYTES (AUTO) 0.4 10^3/uL (0.1-1.4); ABSOLUTE NEUT (AUTO) 7.7 10^3/uL (1.7-8.2); BASOPHILS % (AUTO) 0.5 % (0-2); EOSINOPHILS % (AUTO) 1.1 % (0-6); HEMOGLOBIN 14.8 g/dL (12.0-15.5); HGB HCT DIFFERENCE 1.4; LYMPHOCYTES % (AUTO) 21.9 % (13-45); MEAN CORPUSCULAR HEMOGLOBIN 27.9 pg (27.0-33.4); MEAN CORPUSCULAR HGB CONC 34.4 g/dL (32.0-36.0); MEAN CORPUSCULAR VOLUME 81 fl (80-97); MONOCYTES % (AUTO) 3.3 % (3-13); RED BLOOD COUNT 5.29 10^6/uL (3.72-5.28); RED CELL DISTRIBUTION WIDTH 14.4 % (11.5-14.0); SEGMENTED NEUTROPHILS % (AUTO) 73.2 % (42-78); WHITE BLOOD COUNT 10.6 10^3/uL (4.0-10.5)
[2017-02-27 17:41] LABS: APPEARANCE,URINE SLIGHTLY-CLOUDY; BILIRUBIN,URINE NEGATIVE (NEGATIVE); GLUCOSE, URINE NEGATIVE (NEGATIVE); KETONES,URINE NEGATIVE (NEGATIVE); LEUKOCYTE ESTERASE,URINE TRACE (NEGATIVE); NITRITE,URINE POSITIVE (NEGATIVE); PROTEIN,URINE NEGATIVE (NEGATIVE); URINE SPECIFIC GRAVITY 1.012; UROBILINOGEN,URINE NEGATIVE mg/dL (<2.0)
[2017-02-27 18:00] LABS: ALANINE AMINOTRANSFERASE 27 U/L (9-52); ALBUMIN 4.7 g/dL (3.5-5.0); ALKALINE PHOSPHATASE 65 U/L (38-126); ANION GAP 14 (5-19); ASPARTATE AMINO TRANSFERASE 17 U/L (14-36); BILIRUBIN,DIRECT 0.4 mg/dL (0.0-0.4); BILIRUBIN,TOTAL 0.8 mg/dL (0.2-1.3); BLOOD UREA NITROGEN 13 mg/dL (7-20); CALCIUM 10.1 mg/dL (8.4-10.2); CARBON DIOXIDE 25 mmol/L (22-30); CHLORIDE 101 mmol/L (98-107); CREATININE RESULT 0.75 mg/dL (0.52-1.25); GLUCOSE 137 mg/dL (75-110); POTASSIUM 4.1 mmol/L (3.6-5.0); SODIUM 140.1 mmol/L (137-145); TOTAL PROTEIN 7.8 g/dL (6.3-8.2)
--- NOTE | 2017-02-27 19:10 | RADIOLOGY REPORT (SQ) ---
EXAM DESCRIPTION: U/S NON OB PEL TV W/DOPPLER COMPLETED DATE/TIME: 02/27/2017 7:00 pm REASON FOR STUDY: left adnexal pain COMPARISON: None. TECHNIQUE: Dynamic and static grayscale images acquired of the pelvis via transvaginal approach and recorded on PACS. Additional selected color Doppler and spectral images recorded. LIMITATIONS: None. FINDINGS: UTERUS: Contour normal. No mass. ENDOMETRIAL STRIPE: No focal or generalized thickening. No masses. CERVIX: Small nabothian cysts. RIGHT OVARY: 2.1 cm cyst. RIGHT OVARY DOPPLER: Normal arterial vascular flow without evidence for torsion. LEFT OVARY: 2.2 cyst. LEFT OVARY DOPPLER: Normal arterial vascular flow without evidence for torsion. FREE FLUID: None noted. OTHER: No other significant finding. MEASUREMENTS: UTERUS: 9.0 x 5.6 x 4.3 cm ENDOMETRIAL STRIPE: 9 mm RIGHT OVARY: 3.4 x 1.7 x 1.8 cm LEFT OVARY: 3.5 x 2.3 x 1.7 cm IMPRESSION: Age-appropriate exam. TECHNICAL DOCUMENTATION: JOB ID: [id number]- All Rights Reserved
--- NOTE | 2017-02-27 19:37 | ER Document Report ---
ED GI/ - General Chief Complaint: Abdominal Pain Stated Complaint: ABDOMINAL PAIN Time Seen by Provider: 02/27/17 17:13 Mode of Arrival: Ambulatory Information source: Patient TRAVEL OUTSIDE OF THE U.S. IN LAST 30 DAYS: No - HPI Patient complains to provider of: Pelvic pain Onset: Other - 2-3 days Timing/Duration: Persistent, Worse Quality of pain: Achy, Cramping Severity at maximum: Moderate Severity in ED: Moderate Pain Level: 3 Location: Pelvis Associated symptoms: Vaginal discharge Exacerbated by: Denies Relieved by: Denies Similar symptoms previously: No Recently seen / treated by doctor: No Notes: 02/27/17 19:36 Patient is a 36-year-old female presenting to the emergency room today complaining of left lower pelvic pain that started a few days ago but worsened today, she states over the past few days she has had dull achy pain in the low back with an occasional pinching sensation, symptoms have increased over the last 4 hours prompting her to come to the emergency room, she denies any nausea , vomiting or diarrhea, no fever or chills, no dysuria or hematuria, she does report having irregular menstrual cycles over the past 5 months since having a ectopic requiring surgery with fallopian tube removal, she also had the other fallopian tube clipped at the time, she reports some milky white discharge with no odor - Related Data Allergies/Adverse Reactions: latex Allergy (Unknown, Verified 02/27/17 16:27) erythromycin base [Erythromycin Base] Allergy (Verified 02/27/17 16:27) Past Medical History - General Information source: Patient - Social History Smoking Status: Current Every Day Smoker Chew tobacco use (# tins/day): No Frequency of alcohol use: None Drug Abuse: None Family History: Reviewed & Not Pertinent - Past Medical History Cardiac Medical History: Reports: Hx Hypertension Endocrine Medical History: Reports: Hx Diabetes Mellitus Type 2 Renal/ Medical History: Denies: Hx Peritoneal Dialysis Musculoskeltal Medical History: Reports Hx Arthritis - bilat knee, left ankle, bilat hand Psychiatric Medical History: Reports: Hx Anxiety, Hx Depression - anxiety Past Surgical History: Reports: Hx Kidney (Renal Surgery) - L stents, removed, Hx Orthopedic Surgery - right great toe amputation - Immunizations Immunizations up to date: No Hx Diphtheria, Pertussis, Tetanus Vaccination: Yes Review of Systems - Review of Systems Constitutional: No symptoms reported EENT: No symptoms reported Cardiovascular: No symptoms reported Respiratory: No symptoms reported Gastrointestinal: See HPI Genitourinary: See HPI Female Genitourinary: See HPI Musculoskeletal: No symptoms reported Skin: No symptoms reported Hematologic/Lymphatic: No symptoms reported Neurological/Psychological: No symptoms reported -: Yes All other systems reviewed and negative Physical Exam - Vital signs Vitals: Temp Pulse Resp BP Pulse Ox 99.0 F 72 18 132/85 H 98 02/27/17 16:26 02/27/17 16:26 02/27/17 16:26 02/27/17 16:26 02/27/17 16:26 Interpretation: Normal - General General appearance: Appears well, Alert - HEENT Head: Normocephalic, Atraumatic Eyes: Normal Pupils: PERRL - Respiratory Respiratory status: No respiratory distress Chest status: Nontender Breath sounds: Normal Chest palpation: Normal - Cardiovascular Rhythm: Regular Heart sounds: Normal auscultation Murmur: No - Abdominal Inspection: Normal Distension: No distension Bowel sounds: Normal Tenderness: Nontender Organomegaly: No organomegaly - Genitourinary External exam: Normal Speculum exam: Vaginal discharge - Milky white with cottage cheese consistency Vaginal bleeding: None Bimanuel exam: Adnexal tenderness - Left side - Back Back: Normal, Nontender - Extremities General upper extremity: Normal inspection, Nontender, Normal color, Normal ROM , Normal temperature General lower extremity: Normal inspection, Nontender, Normal color, Normal ROM , Normal temperature, Normal weight bearing. No: Fanny's sign - Neurological Neuro grossly intact: Yes Cognition: Normal Orientation: AAOx4 Stacey Coma Scale Eye Opening: Spontaneous Stacey Coma Scale Verbal: Oriented Stacey Coma Scale Motor: Obeys Commands [place] Coma Scale Total: 15 Speech: Normal Motor strength normal: LUE, RUE, LLE, RLE Sensory: Normal - Psychological Associated symptoms: Normal affect, Normal mood - Skin Skin Temperature: Warm Skin Moisture: Dry Skin Color: Normal Course - Re-evaluation Re-evalutation: 02/27/17 19:45 Lab and imaging findings discussed with patient at bedside, she was provided with prescription for pain relief, urinary tract infection and yeast infection, advised to follow-up with a primary care provider or return if symptoms worsen, patient acknowledges understanding and agreement with this plan - Vital Signs Vital signs: Temp Pulse Resp BP Pulse Ox 99.0 F 72 18 132/85 H 98 02/27/17 16:26 02/27/17 16:26 02/27/17 16:26 02/27/17 16:26 02/27/17 16:26 - Laboratory Result Diagrams: 02/27/17 17:22 02/27/17 17:22 Laboratory results interpreted by me: 02/27/17 02/27/17 02/27/17 17:22 17:22 17:22 WBC 10.6 H RBC 5.29 H RDW 14.4 H Glucose 137 H Urine Blood SMALL H Urine Nitrite POSITIVE H Ur Leukocyte Esterase TRACE H - Diagnostic Test Radiology reviewed: Image reviewed, Reports reviewed Discharge - Discharge Clinical Impression: Vaginal yeast infection Ovarian cyst Qualifiers: Laterality: bilateral Qualified Code(s): N83.201 - Unspecified ovarian cyst, right side; N83.202 - Unspecified ovarian cyst, left side Urinary tract infection Qualifiers: Urinary tract infection type: site unspecified Hematuria presence: without hematuria Qualified Code(s): N39.0 - Urinary tract infection, site not specified Condition: Stable Disposition: HOME, SELF-CARE Instructions: Urinary Tract Infection ([facility]), Ovarian Cyst ([facility]), Vaginal Yeast Infection ([facility]) Additional Instructions: Follow up with your primary care provider in one to 2 days. Return to the emergency room immediately if symptoms worsen or any additional concerns. Prescriptions: Cephalexin Monohydrate [Keflex 500 mg Capsule] 500 mg PO BID #20 capsule Fluconazole [Diflucan] 150 mg PO ONCE PRN #1 tablet PRN Reason: Hydrocodone/Acetaminophen [Hydrocodon-Acetaminophen 5-325] 1 each PO Q6 #20 tablet
[2017-02-27] MEDS ORDERED: HYDROCODONE/ACETAMINOPHEN 5-325 MG 6 TAB/DSPK PO PRN (19:47)
[2017-02-27] MEDS ORDERED: FLUCONAZOLE 100 MG TABLET PO ONE (19:47)
[2017-02-27] MEDS ORDERED: CEPHALEXIN 500 MG CAPSULE PO ONE (19:47)
[2017-02-27 21:27] LABS: CHLAM PCR NOT DETECTED (NOT DETECT)
== END 2017-02-27 20:18 | disposition home or self-care (01) ==
LOC: ER 16:11
DX: B37.3 Candidiasis of vulva and vagina (principal); N83.201 Unspecified ovarian cyst, right side; N39.0 Urinary tract infection, site not specified; R10.9 Unspecified abdominal pain; R10.32 Left lower quadrant pain; R10.2 Pelvic and perineal pain; F17.200 Nicotine dependence, unspecified, uncomplicated
CPT/HCPCS: 36415; 76830; 80053; 81001; 84702; 85025; 87210; 87491; 87591; 93976; 99284

== ENCOUNTER 2017-12-01 13:14 | Emergency (ER) | payer BC, MEDICAID ==
[2017-12-01 13:21] VITALS: BP 164/99
[2017-12-01] MEDS ORDERED: ONDANSETRON 4 MG TAB.RAPDIS PO ONE (13:29)
[2017-12-01] MEDS ORDERED: IBUPROFEN 800 MG TABLET PO ONE (13:29)
[2017-12-01] MEDS ORDERED: CEPHALEXIN 500 MG CAPSULE PO ONE (13:29)
[2017-12-01] MEDS ORDERED: DIPH/PERTUSS(ACELL)/TETANUS VAC/PF 0.5 ML SYR (>=10YO) IM ONE (13:30)
--- NOTE | 2017-12-01 13:34 | ER Document Report ---
HPI - HPI Patient complains to provider of: Right foot injury Onset: Yesterday Onset/Duration: Sudden Quality of pain: Achy Pain Level: 3 Context: Patient states that punctured her right foot on a piece of metal sticking out of a car seat. Patient states that she does have a history of diabetes. Patient is uncertain when her last tetanus immunization was. Patient complains of persistent foot pain. Patient without any fever. Associated Symptoms: Other - Right foot pain. denies: Fever Exacerbated by: Standing, Movement, Walking Relieved by: Denies Similar symptoms previously: No Recently seen / treated by doctor: No - ROS ROS below otherwise negative: Yes Systems Reviewed and Negative: Yes All other systems reviewed and negative - CONSTITUTIONAL Constitutional: DENIES: Fever - NEURO Neurology: DENIES: Weakness - REPRODUCTIVE Reproductive: DENIES: : - MUSCULOSKELETAL Musculoskeletal: REPORTS: Extremity pain. 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: Family Family History: Reviewed & Not Pertinent Patient has suicidal ideation: No Patient has homicidal ideation: No - Past Medical History Cardiac Medical History: Reports: Hx Hypertension Endocrine Medical History: Reports: Hx Diabetes Mellitus Type 2 Renal/ Medical History: Denies: Hx Peritoneal Dialysis Musculoskeltal Medical History: Reports Hx Arthritis - bilat knee, left ankle, bilat hand Psychiatric Medical History: Reports: Hx Anxiety, Hx Depression - anxiety Past Surgical History: Reports: Hx Kidney (Renal Surgery) - L stents, removed, Hx Orthopedic Surgery - right great toe amputation - Immunizations Immunizations up to date: No Hx Diphtheria, Pertussis, Tetanus Vaccination: Yes Vertical Provider Document - CONSTITUTIONAL Agree With Documented VS: Yes Exam Limitations: No Limitations General Appearance: WD/WN, No Apparent Distress - INFECTION CONTROL TRAVEL OUTSIDE OF THE [place].S. IN LAST 30 DAYS: No - HEENT HEENT: Atraumatic, Normocephalic - NECK Neck: Normal Inspection - RESPIRATORY Respiratory: No Respiratory Distress - CARDIOVASCULAR Pulses: Normal: Dorsalis pedis - MUSCULOSKELETAL/EXTREMETIES Musculoskeletal/Extremeties: MAEW, FROM, Tender - Right foot tenderness to medial midfoot area, puncture wound to this area, no surrounding erythema or swelling, No Edema - NEURO Level of Consciousness: Awake, Alert, Appropriate Motor/Sensory: No Motor Deficit - DERM Integumentary: Warm, Dry. negative: Abscess Notes: Puncture wound to medial aspect of right foot Course - Re-evaluation Re-evalutation: 12/01/17 13:46 Patient refuses to have x-rays performed. Patient also refusing to use crutches. Refusal of treatment form signed. Discussed worsening symptoms that patient should return immediately for. Patient verbalized understanding and agrees with plan of care. - Vital Signs Vital signs: Temp Pulse Resp BP Pulse Ox 98.4 F 64 18 164/99 H 99 12/01/17 13:19 12/01/17 13:19 12/01/17 13:19 12/01/17 13:19 12/01/17 13:19 Discharge - Discharge Clinical Impression: Puncture wound of right foot Qualifiers: Encounter type: initial encounter Qualified Code(s): S91.331A - Puncture wound without foreign body, right foot, initial encounter Condition: Stable Disposition: HOME, SELF-CARE Instructions: Antibiotic Ointment Protection ([facility]), Prophylactic Antibiotic ( [facility]), Puncture Wound ([facility]), Soap Cleansing ([facility]), Tetanus Immunization Given ( [facility]) Additional Instructions: Return immediately for any new or worsening symptoms Followup with your primary care provider, call tomorrow to make a followup appointment Follow-up with orthopedics for any persistent pain or problems Perform daily wound care, keep wound covered as it continues to heal Prescriptions: Cephalexin Monohydrate [Keflex 500 mg Capsule] 500 mg PO Q6H 5 Days capsule Hydrocodone/Acetaminophen [[place] 5-325 Tablet] 1 each PO Q4 PRN #10 tablet PRN Reason: Ondansetron HCl [Zofran 4 mg Tablet] 1 - 2 tab PO Q6 PRN #10 tablet PRN Reason: Forms: Smoking Cessation Education, Return to Work Referrals: [facility] [Provider Group] - Follow up as needed
== END 2017-12-01 13:48 | disposition home or self-care (01) ==
LOC: ER 13:14
DX: S91.331A Puncture wound without foreign body, right foot, initial encounter (principal); M79.671 Pain in right foot; W22.8XXA Striking against or struck by other objects, initial encounter; F17.200 Nicotine dependence, unspecified, uncomplicated; I10 Essential (primary) hypertension; E11.9 Type 2 diabetes mellitus without complications
CPT/HCPCS: 99282; 90471; 90715; S0119

== ENCOUNTER 2018-10-01 19:30 | Emergency (ER) | payer BC, MEDICAID ==
--- NOTE | 2018-10-01 20:04 | ER Document Report ---
ED Medical Screen (RME) - General Chief Complaint: Swelling Stated Complaint: SWELLING AROUND COLLARBONE AND ARMPIT Time Seen by Provider: 10/01/18 20:00 Mode of Arrival: Ambulatory Information source: Patient Notes: Patient is a 38-year-old female who presents to the emergency department with complaints of pain along her right collarbone. She reports swelling to the area as well as swelling to the right axilla. Mild swelling is noted upon inspection. The area is very tender to palpation, unable to get a good exam in triage due to patient's pain level. Patient reports recently had cough and congestion but denies any fevers. Patient states the pain to her collarbone and right axilla has been present since this morning. Orders deferred at this time until seen by a provider in the back who can do a more thorough physical exam. I have greeted and performed a rapid initial assessment of this patient. A comprehensive ED assessment and evaluation of the patient, analysis of test results and completion of the medical decision making process will be conducted by additional ED providers. Dictation of this chart was performed using voice recognition software; therefore, there may be some unintended grammatical errors. TRAVEL OUTSIDE OF THE U.[place]. IN LAST 30 DAYS: No - Related Data Allergies/Adverse Reactions: latex Allergy (Unknown, Verified 12/01/17 13:18) erythromycin base [Erythromycin Base] Allergy (Verified 12/01/17 13:18) Past Medical History - Past Medical History Cardiac Medical History: Reports: Hx Hypertension Endocrine Medical History: Reports: Hx Diabetes Mellitus Type 2 Renal/ Medical History: Denies: Hx Peritoneal Dialysis Musculoskeltal Medical History: Reports Hx Arthritis - bilat knee, left ankle, bilat hand Psychiatric Medical History: Reports: Hx Anxiety, Hx Depression - anxiety Past Surgical History: Reports: Hx Kidney (Renal Surgery) - L stents, removed, Hx Orthopedic Surgery - right great toe amputation - Immunizations Immunizations up to date: No Hx Diphtheria, Pertussis, Tetanus Vaccination: Yes Physical Exam - Vital signs Vitals: Temp Pulse Resp BP Pulse Ox 99.4 F 82 16 139/101 H 100 10/01/18 19:42 10/01/18 19:42 10/01/18 19:42 10/01/18 19:42 10/01/18 19:42 Course - Vital Signs Vital signs: Temp Pulse Resp BP Pulse Ox 99.4 F 82 16 139/101 H 100 10/01/18 19:42 10/01/18 19:42 10/01/18 19:42 10/01/18 19:42 10/01/18 19:42
--- NOTE | 2018-10-01 21:55 | ER Document Report ---
ED General - General Chief Complaint: Swelling Stated Complaint: SWELLING AROUND COLLARBONE AND ARMPIT Time Seen by Provider: 10/01/18 20:00 Primary Care Provider: RAMSES DAVENPORT PA [Primary Care Provider] - Follow up as needed Mode of Arrival: Ambulatory Information source: Patient TRAVEL OUTSIDE OF THE [place] IN LAST 30 DAYS: No - HPI Patient complains to provider of: Collarbone pain/knot, axillary pain/knot Onset: Other - Intermittent for months Onset/Duration: Gradual Quality of pain: Achy, Pressure Severity: Moderate Pain Level: 3 Associated symptoms: denies: Chills, Nonproductive cough, Productive cough, Fever Exacerbated by: Movement, Other - Palpation Relieved by: Denies Similar symptoms previously: No Recently seen / treated by doctor: No Notes: 2-year-old female with history of tobacco abuse and intermittent swelling and throbbing and "knots" around right collarbone and right axilla for months. No fevers or chills. No cough. No weight loss. - Related Data Allergies/Adverse Reactions: latex Allergy (Unknown, Verified 12/01/17 13:18) erythromycin base [Erythromycin Base] Allergy (Verified 12/01/17 13:18) Past Medical History - General Information source: Patient - Social History Smoking Status: Current Every Day Smoker Frequency of alcohol use: None Drug Abuse: None Family History: Reviewed & Not Pertinent, Other - Breast carcinoma in grandmother and a couple of her aunts Patient has suicidal ideation: No Patient has homicidal ideation: No - Past Medical History Cardiac Medical History: Reports: Hx Hypertension Endocrine Medical History: Reports: Hx Diabetes Mellitus Type 2 Renal/ Medical History: Denies: Hx Peritoneal Dialysis Musculoskeletal Medical History: Reports Hx Arthritis - bilat knee, left ankle, bilat hand Psychiatric Medical History: Reports: Hx Anxiety, Hx Depression - anxiety Past Surgical History: Reports: Hx Kidney (Renal Surgery) - L stents, removed, Hx Orthopedic Surgery - right great toe amputation - Immunizations Immunizations up to date: No Hx Diphtheria, Pertussis, Tetanus Vaccination: Yes Review of Systems - Review of Systems Notes: Constitutional: No fevers. No chills. EENT: No eye redness. No eye pain. No ear pain. No sore throat. Cardiovascular: No chest pain. No palpitations. Respiratory: No cough. No shortness of breath. No respiratory distress. Gastrointestinal: No abdominal pain. No nausea, vomiting, or diarrhea. Genitourinary: Atraumatic. No lesions. No pain. No discharge. Musculoskeletal: "knots" to right clavicle and axilla. Skin: No rash or lesions. Lymphatic: No swollen lymph nodes. Neurologic: No headache. No syncope. Psychiatric: No suicidal or homicidal ideation. Physical Exam - Vital signs Vitals: Temp Pulse Resp BP Pulse Ox 99.4 F 82 16 139/101 H 100 10/01/18 19:42 10/01/18 19:42 10/01/18 19:42 10/01/18 19:42 10/01/18 19:42 - Notes Notes: General: Well-developed, well-nourished. In no acute distress. Non-toxic appearing. Cardiac: Well-perfused. Regular rate and rhythm. No murmurs, rubs, or gallops. Pulmonary: No respiratory distress. No cyanosis. Bilateral lung ch are clear to auscultation. Abdominal: Non-distended. Non-rigid. Bowels sounds are present in all four quadrants. No guarding or rebound. HEENT: Head is atraumatic. Conjunctivae not reddened. No tearing. PERRL. EOMI. Orbits atraumatic. No periorbital swelling or erythema. Oropharynx is without erythema, swelling, or exudates. Neck: Supple. No adenopathy. No meningismus. Dermatologic: Warm with good turgor. No rash. Atraumatic. Chest: Atraumatic. No chest wall tenderness to palpation. Chaperoned by Evelyn bilateral breast exam performed as well as axillary lymphadenopathy check. Bilateral breast without mass or tenderness. No subcutaneous lumps or bumps. No nipple discharge. No peau d'orange. See musculoskeletal exam for lymphaden opathy descriptions Musculoskeletal: Moves all extremities well. No range of motion deficits. no mu scular or joint tenderness. No paraspinal muscle tenderness. no midline spinal tenderness or step-off. There appears to be an ill-defined subcutaneous lesion sitting just above the right clavicle also similar ill-defined subcutaneous lesion in the right axilla Genitourinary: Examination deferred Neurologic: No gross neurologic deficits. Psychiatric: Normal mood. Course - Re-evaluation Re-evalutation: 10/01/18 21:55 Labs and screening chest x-ray ordered. Patient will most likely need further imaging to get to the bottom of this lymphadenopathy which I think it is. 10/01/18 23:06 Labs and x-ray are back both pretty unremarkable. I want to refer her to [facility] and give her general surgery for out patient consult. - Vital Signs Vital signs: Temp Pulse Resp BP Pulse Ox 99.4 F 82 16 139/101 H 100 10/01/18 19:42 10/01/18 19:42 10/01/18 19:42 10/01/18 19:42 10/01/18 19:42 - Laboratory Result Diagrams: 10/01/18 22:12 10/01/18 22:12 Laboratory results interpreted by me: 10/01/18 10/01/18 22:12 22:12 MCV 77 L MCH 26.2 L RDW 14.8 H Sodium 136.0 L Discharge - Discharge Clinical Impression: Supraclavicular lymphadenopathy, Axillary adenopathy Condition: Good Disposition: HOME, SELF-CARE Instructions: Lymphadenopathy ([facility]) Additional Instructions: These swollen areas will need further evaluation by a specialist and possible additional imaging will be required. [facility] and if needed the general surgeon who has also been provided. Referrals: RAMSES DAVENPORT PA [Primary Care Provider] - Follow up as needed [facility] [Provider Group] - Follow up tomorrow MADDI BARBOZA MD [ACTIVE STAFF] - Follow up tomorrow Print Language: Danish
--- NOTE | 2018-10-01 22:09 | RADIOLOGY REPORT (SQ) ---
EXAM DESCRIPTION: XR CHEST 2 VIEWS COMPLETED DATE/TME: 10/01/2018 21:30 CLINICAL HISTORY: 38 years, Female, axillary and supraclavicular nodes COMPARISON: 05/22/2015 chest NUMBER OF VIEWS: 2 TECHNIQUE: 2 views of the chest LIMITATIONS: None. FINDINGS: Heart size normal. Lungs clear. No pneumothorax IMPRESSION: Negative chest copyright 2010 [employer]- All Rights Reserved
[2018-10-01 22:19] LABS: ABSOLUTE EOSINOPHILS # (AUTO) 0.1 10^3/uL (0.0-0.6); ABSOLUTE LYMPHOCYTES (AUTO) 1.9 10^3/uL (0.5-4.7); ABSOLUTE MONOCYTES (AUTO) 0.6 10^3/uL (0.1-1.4); ABSOLUTE NEUT (AUTO) 6.1 10^3/uL (1.7-8.2); BASOPHILS % (AUTO) 0.4 % (0-2); EOSINOPHILS % (AUTO) 1.5 % (0-6); HEMATOCRIT 38.9 % (36.0-47.0); HEMOGLOBIN 13.2 g/dL (12.0-15.5); LYMPHOCYTES % (AUTO) 21.3 % (13-45); MEAN CORPUSCULAR HEMOGLOBIN 26.2 pg (27.0-33.4); MEAN CORPUSCULAR VOLUME 77 fl (80-97); MONOCYTES % (AUTO) 7.1 % (3-13); PLATELET COUNT 244 10^3/uL (150-450); RED BLOOD COUNT 5.04 10^6/uL (3.72-5.28); RED CELL DISTRIBUTION WIDTH 14.8 % (11.5-14.0); SEGMENTED NEUTROPHILS % (AUTO) 69.7 % (42-78); TOTAL CELLS COUNTED % (AUTO) 100 %; WHITE BLOOD COUNT 8.8 10^3/uL (4.0-10.5)
[2018-10-01 22:31] LABS: ALANINE AMINOTRANSFERASE 43 U/L (9-52); ALBUMIN 4.2 g/dL (3.5-5.0); ALKALINE PHOSPHATASE 71 U/L (38-126); ANION GAP 7 (5-19); ASPARTATE AMINO TRANSFERASE 26 U/L (14-36); BILIRUBIN,DIRECT 0.3 mg/dL (0.0-0.4); BILIRUBIN,TOTAL 0.8 mg/dL (0.2-1.3); BLOOD UREA NITROGEN 12 mg/dL (7-20); CALCIUM 9.4 mg/dL (8.4-10.2); CARBON DIOXIDE 27 mmol/L (22-30); CHLORIDE 102 mmol/L (98-107); GLUCOSE 82 mg/dL (75-110); POTASSIUM 4.5 mmol/L (3.6-5.0); TOTAL PROTEIN 7.4 g/dL (6.3-8.2)
[2018-10-02 00:21] VITALS: BP 136/78
== END 2018-10-01 23:40 | disposition home or self-care (01) ==
LOC: ER 19:30
DX: R59.0 Localized enlarged lymph nodes (principal); F17.200 Nicotine dependence, unspecified, uncomplicated; I10 Essential (primary) hypertension; E11.9 Type 2 diabetes mellitus without complications
CPT/HCPCS: 36415; 71046; 80053; 85025; 99283

== ENCOUNTER → 2018-10-19 | Outpatient (CLI) | payer BC ==
[2018-10-21 21:33] LABS: CYTOMEGALOVIRUS IGG AB >10.00 U/mL (0.00-0.59); CYTOMEGALOVIRUS IGM AB <30.0 AU/mL (0.0-29.9)
[2018-10-21 22:46] LABS: EPSTEIN BARR EARLY AG IGG AB <9.0 U/mL (0.0-8.9); EPSTEIN BARR NUCLEAR AG IGG AB 40.1 U/mL (0.0-17.9); EPSTEIN BARR VCA IGM AB <36.0 U/mL (0.0-35.9)
[2018-10-22 02:36] LABS: Q FEVER PHASE I AB Negative (Neg:<1:16); ROCKY MTN SPOTTED FEV IGG EIA Negative (Negative)
[2018-10-22 07:32] LABS: Q FEVER PHASE II AB Negative (Neg:<1:16)
== END ==
LOC: LAB 15:04
PROVIDERS: ATTEND Surgery
DX: L40.50 Arthropathic psoriasis, unspecified (principal); R59.0 Localized enlarged lymph nodes; E11.9 Type 2 diabetes mellitus without complications; I10 Essential (primary) hypertension
CPT/HCPCS: 36415; 86256; 86644; 86663; 86664; 86665; 86757

== ENCOUNTER 2018-11-20 09:45 | Day surgery (SDC) | payer BC ==
[2018-11-13 10:55] LABS: HEMATOCRIT 40.1 % (36.0-47.0); HEMOGLOBIN 13.4 g/dL (12.0-15.5); MEAN CORPUSCULAR HEMOGLOBIN 25.6 pg (27.0-33.4); MEAN CORPUSCULAR HGB CONC 33.5 g/dL (32.0-36.0); MEAN CORPUSCULAR VOLUME 76 fl (80-97); PLATELET COUNT 297 10^3/uL (150-450); RED BLOOD COUNT 5.24 10^6/uL (3.72-5.28); RED CELL DISTRIBUTION WIDTH 14.6 % (11.5-14.0); WHITE BLOOD COUNT 7.7 10^3/uL (4.0-10.5)
[~2018-11-20 09:45] MED LIST changes: +CEFAZOLIN 2 GM/D5W RTU 2 GM/50 ML RTUPB IV PRN; +DEXAMETHASONE SOD PHOSPHATE INJ 4 MG/1 ML VIAL ONE; +FENTANYL CITRATE INJ/PF 100 MCG/2 ML AMPUL ONE; -GLYCOPYRROLATE INJ 0.4 MG/2 ML VIAL ONE; +LACTATED RINGERS 1000 ML IV PRN; +LIDOCAINE 0.5% INJ-PF (5 MG/ML) 50 ML SDV SUBCUT PRN; -METOCLOPRAMIDE HCL INJ/PF 10 MG/2 ML SDV ONE; +MIDAZOLAM 2 MG/2 ML INJ ONE; -NEOSTIGMINE METHYLSULFATE 10 MG/10 ML VIAL ONE; -PHENYLEPHRINE HCL INJ/PF 10 MG/1 ML SDV ONE; +PROPOFOL INJ 200 MG/20 ML VIAL IV ONE; -ROCURONIUM BROMIDE INJ 50 MG/5 ML VIAL IV ONE; -SUCCINYLCHOLINE CHLORIDE INJ 200 MG/10 ML VIAL ONE
[2018-11-20] MEDS ORDERED: CEFAZOLIN 2 GM/D5W RTU 2 GM/50 ML RTUPB IV ONE (09:53)
[2018-11-20] MEDS ORDERED: SCOPOLAMINE HYDROBROMIDE 1.5 MG PATCH.TD72 ONE (10:39)
[2018-11-20] MEDS ORDERED: ACETAMINOPHEN 325 MG TABLET ONE (10:39)
[2018-11-20] MEDS ORDERED: MIDAZOLAM 2 MG/2 ML INJ ONE (10:39)
[2018-11-20] MEDS ORDERED: FAMOTIDINE INJ/PF 20 MG/2 ML SDV IV ONE (10:40)
[2018-11-20] MEDS ORDERED: BUPIVACAINE HCL 0.25 % INJ/PF (2.5 MG/1 ML) 30 ML VIAL ONE (12:14)
[2018-11-20] MEDS ORDERED: MICROFIBRILLAR COLLAGEN 1 GM PACK ONE (12:14)
[2018-11-20] MEDS ORDERED: MORPHINE SULFATE 10 MG/ML INJ IV PRN (12:25)
[2018-11-20] MEDS ORDERED: FENTANYL CITRATE INJ/PF 100 MCG/2 ML AMPUL IV PRN ×3 (12:25)
[2018-11-20] MEDS ORDERED: MEPERIDINE HCL/PF INJ 25 MG/1 ML DISP.SYRIN IV PRN (12:25)
[2018-11-20] MEDS ORDERED: ONDANSETRON HCL INJ/PF 4 MG/2 ML SDV IV PRN (12:25)
[2018-11-20] MEDS ORDERED: PROMETHAZINE HCL INJ 25 MG/1 ML VIAL IV PRN ×2 (12:25)
[2018-11-20] MEDS ORDERED: DIPHENHYDRAMINE HCL 50 MG/ML VIAL IV PRN (12:25)
[2018-11-20] MEDS: FENTANYL CITRATE INJ/PF 100 MCG/2 ML AMPUL ONE ×2 (13:11→13:19)
[2018-11-20] MEDS ORDERED: HYDROCODONE/ACETAMINOPHEN 5-325 MG TABLET PO PRN (13:18)
[2018-11-20] MEDS ORDERED: HYDROCODONE/ACETAMINOPHEN 5-325 MG TABLET ONE (13:47)
[2018-11-20] MEDS ORDERED: IBUPROFEN 800 MG TABLET PO SCH (14:00)
[2018-11-20] MEDS ORDERED: KETOROLAC TROMETHAMINE INJ/PF 30 MG/1 ML SDV ONE (14:26)
[2018-11-20] MEDS ORDERED: MORPHINE SULFATE 10 MG/ML INJ ONE ×2 (14:32→14:33)
[2018-11-20 15:43] VITALS: BP 142/79
[2018-11-20] MEDS ORDERED: GLYCOPYRROLATE 1 MG/5 ML SYRINGE ONE (21:16)
[2018-11-20] MEDS ORDERED: KETOROLAC TROMETHAMINE 60 MG/2 ML SDV ONE (21:16)
[2018-11-20] MEDS ORDERED: SUCCINYLCHOLINE CHLORIDE INJ 200 MG/10 ML VIAL ONE (21:16)
--- NOTE | 2018-11-24 07:59 | Discharge Summary ---
Discharge Summary (SDC) - Discharge Final Diagnosis: Enlarged right axillary lymph node Date of Surgery: 11/20/18 Discharge Date: 11/20/18 Condition: Stable Forms: ASU Anesthesia D/C Instruction, Discharge POC-Surgical Service Treatment or Instructions: Discharge home. Diet as tolerated. Activity: Nonstrenuous. Follow-up with me in 7 to 10 days. [place] 5/325 mg p.o. every 6 hours as needed for pain. Ibuprofen 800 mg p.o. 3 times daily with meals. Okay to shower in 48 hours. No tub baths or swimming pools x2 weeks. Referrals: CHERRY DAWSON MD [ACTIVE STAFF] - 12/01/18 1:15 pm Discharge Diet: As Tolerated Respiratory Treatments at Home: Deep Breathing/Coughing, Incentive Spirometer Discharge Activity: Balance Activity w/Rest Home Care Assistance: None Needed Report the Following to Your Physician Immediately: Nausea, Vomiting, Increase in Pain, Fever over 101 Degrees, Unusual Bleeding, Redness, Swelling, Warmth, Drainage-Foul Smelling
--- NOTE | 2018-11-24 08:14 | Operative Report ---
Nonrecallable Operative Report DATE OF SURGERY: 11/20/18 PREOPERATIVE DIAGNOSIS: Enlarged right axillary lymph node, found on ultrasound POSTOPERATIVE DIAGNOSIS: Enlarged right axillary lymph node, deep space OPERATION: Excisional biopsy of deep right axillary lymph node. SURGEON: CHERRY DAWSON 1ST ULTRASOUND MANAGER: CONSTANCE TORRES ANESTHESIA: GA TISSUE REMOVED OR ALTERED: Deep right axillary lymph node COMPLICATIONS: None apparent ESTIMATED BLOOD LOSS: Minimal PROCEDURE: Drains/implants: None. Procedure in detail: After informed consent was obtained, the patient was brought to the operating room and laid in the supine position. The area of the right axilla was prepped and draped in a normal sterile fashion. The ultrasound was used to identify the enlarged lymph node. It was approximately 2 to 3 cm in total diameter and was easily identified on ultrasonography. An incision was created in the axilla immediately over the area of the lymph node. Dissection was carried through the subcutaneous tissue using sharp and blunt dissection. The lymph node was identified using ultrasonography and palpation. It was found to be deep to the pectoralis muscle, in the deep space of the right axilla. The lymph node was dissected free of the surrounding tissues. Blood vessels and lym phatics at the stalk of the lymph node were ligated and divided using hemoclips and Metzenbaum scissors. The lymph node was then removed from the patient and passed off the field. The axilla and supraclavicular area were then reexamined with the ultrasound. No other suspicious lymphadenopathy could be identified. The axilla was then closed. The subcutaneous tissue was closed using 3-0 Vicryl suture in simple running fashion. The overlying skin was closed using 4-0 Vicryl Rapide suture in subcuticular fashion. A dressing was placed, and the procedure was concluded. All sponge, instrument, and needle counts were correct x2. Condition: Stable. Constance Torres PA-C was scrubbed and present the entirety the procedure. She assisted with all portions of the procedure including opening of the axilla, retraction, dissection of the lymph node, removal of the lymph node, closure of the subcutaneous tissue, and closure of the skin.
== END 2018-11-20 15:40 | disposition home or self-care (01) ==
LOC: OROUT 09:45
PROVIDERS: ATTEND Surgery
DX: R59.0 Localized enlarged lymph nodes (principal); E11.9 Type 2 diabetes mellitus without complications; L40.50 Arthropathic psoriasis, unspecified; I10 Essential (primary) hypertension; F17.210 Nicotine dependence, cigarettes, uncomplicated; F12.90 Cannabis use, unspecified, uncomplicated
CPT/HCPCS: 36415; 88185 ×15; 88184; 85027; 81025; 88233; 88262; 88305 ×2; 88312 ×2; 38500; J2250; J1100; J1885; J3010; J2270; J0330; J2405; J2704; S0028; J0690; J3490; 1610

== ENCOUNTER → 2018-11-30 | Outpatient (CLI) | payer BC ==
[2018-11-30 17:01] LABS: ALANINE AMINOTRANSFERASE 21 U/L (9-52); ALKALINE PHOSPHATASE 54 U/L (38-126); ANION GAP 10 (5-19); ASPARTATE AMINO TRANSFERASE 14 U/L (14-36); BILIRUBIN,DIRECT 0.2 mg/dL (0.0-0.4); BILIRUBIN,TOTAL 0.6 mg/dL (0.2-1.3); BLOOD UREA NITROGEN 14 mg/dL (7-20); CALCIUM 9.3 mg/dL (8.4-10.2); CARBON DIOXIDE 25 mmol/L (22-30); CHLORIDE 105 mmol/L (98-107); GLUCOSE 91 mg/dL (75-110); POTASSIUM 4.6 mmol/L (3.6-5.0); SODIUM 139.9 mmol/L (137-145); TOTAL PROTEIN 6.7 g/dL (6.3-8.2)
== END ==
LOC: OD 14:48
PROVIDERS: ATTEND Family Medicine
DX: I10 Essential (primary) hypertension (principal); E11.9 Type 2 diabetes mellitus without complications; E04.9 Nontoxic goiter, unspecified
CPT/HCPCS: 36415; 80053; 83036; 84443

== ENCOUNTER → 2018-12-01 | Outpatient (CLI) | payer BC ==
--- NOTE | 2018-12-01 08:25 | RADIOLOGY REPORT (SQ) ---
EXAM DESCRIPTION: CT HEAD WITHOUT COMPLETED DATE/TIME: 12/01/2018 8:16 am REASON FOR STUDY: UNSPECIFIED CONVULSIONS (R56.9) R56.9 UNSPECIFIED CONVULSIONS COMPARISON: None. TECHNIQUE: Axial images acquired through the brain without intravenous contrast. Images reviewed wi th bone, brain and subdural windows. Additional sagittal and coronal reconstructions were generated. Images stored on PACS. All CT scanners at this facility use dose modulation, iterative reconstruction, and/or weight based d osing when appropriate to reduce radiation dose to as low as reasonably achievable (ALARA). [facility]: Dose Right [facility]: CareDose [facility]: Dose Right [facility]: Teradose 4D [facility]: Weddingful RADIATION DOSE: CT Rad equipment meets quality standard of care and radiation dose reduction techniq ues were employed. CTDIvol: 48.5 mGy. DLP: 854 mGy-cm. mGy. LIMITATIONS: None. FINDINGS: VENTRICLES: Normal size and contour. CEREBRUM: No masses. No hemorrhage. No midline shift. No evidence for acute infarction. Normal gra y/white matter differentiation. No areas of low density in the white matter. CEREBELLUM: No masses. No hemorrhage. No alteration of density. No evidence for acute infarction. EXTRAAXIAL SPACES: No fluid collections. No masses. ORBITS AND GLOBE: No intra- or extraconal masses. Normal contour of globe without masses. CALVARIUM: No fracture. PARANASAL SINUSES: No fluid or mucosal thickening. SOFT TISSUES: No mass or hematoma. OTHER: No other significant finding. IMPRESSION: NORMAL BRAIN CT WITHOUT CONTRAST. EVIDENCE OF ACUTE STROKE: NO. COMMENT: Quality ID # [id number]: Final reports with documentation of one or more dose reduction techniques (e.g., Automated exposure control, adjustment of the mA and/or kV according to patient size, use of iterative reconstruction technique) TECHNICAL DOCUMENTATION: JOB ID: [id number] [employer]- All Rights Reserved Reading location - IP/workstation name: [email or web address]
== END ==
LOC: RAD 07:47
PROVIDERS: ATTEND Family Medicine
DX: R56.9 Unspecified convulsions (principal)
CPT/HCPCS: 70450

== ENCOUNTER → 2019-01-13 | Outpatient (CLI) | payer BC ==
[2019-01-15 11:37] LABS: HEPATITIS A AB IGM Negative (Negative); HEPATITIS B CORE AB IGM Negative (Negative); HEPATITIS C VIRUS AB <0.1 s/co ratio (0.0-0.9); HEPATITS B SURFACE ANTIGEN Negative (Negative)
[2019-01-15 16:04] LABS: HEPATITIS C VIRUS ANTIBODY 0.1 s/co ratio (0.0-0.9)
[2019-01-16 18:21] LABS: HEPATITIS BE AB Negative (Negative)
== END ==
LOC: OD 14:37
PROVIDERS: ATTEND Physician Assistant
DX: E11.9 Type 2 diabetes mellitus without complications (principal); R59.0 Localized enlarged lymph nodes; L40.0 Psoriasis vulgaris
CPT/HCPCS: 36415; 80074; 86701; 86707; 86803; 86804

== ENCOUNTER → 2019-09-24 | Outpatient (CLI) | payer BC ==
[2019-09-25 06:36] LABS: HEPATITIS C VIRUS AB <0.1 s/co ratio (0.0-0.9)
[2019-09-25 08:06] LABS: HEPATITIS B SURFACE AB QUAL Non Reactive (.); HEPATITS B SURFACE ANTIGEN Negative (Negative)
[2019-09-27 15:36] LABS: HSV 1 IGM AB <1:10 titer (<1:10)
[2019-09-27 16:34] LABS: HSV 2 IGM AB <1:10 titer (<1:10)
== END ==
LOC: OD 12:07
PROVIDERS: ATTEND Family Medicine
DX: Z20.2 Contact with and (suspected) exposure to infections with a predominantly sexual mode of transmission (principal); Z11.4 Encounter for screening for human immunodeficiency virus [HIV]; Z11.8 Encounter for screening for other infectious and parasitic diseases
CPT/HCPCS: 36415; 86592; 86695; 86696; 86701; 86706; 86803; 86804; 87340

== ENCOUNTER → 2019-10-13 | Outpatient (CLI) | payer BC | LOC: OD 10:30 | PROVIDERS: ATTEND Family Medicine | DX: Z20.2 Contact with and (suspected) exposure to infections with a predominantly sexual mode of transmission (principal) | CPT/HCPCS: 36415; 86695; 86696 ==

== ENCOUNTER → 2019-11-25 | Outpatient (CLI) | payer BC | LOC: OD 13:56 | PROVIDERS: ATTEND Family Medicine | DX: T14.8XXA Other injury of unspecified body region, initial encounter (principal); W57.XXXA Bitten or stung by nonvenomous insect and other nonvenomous arthropods, initial encounter | CPT/HCPCS: 36415; 86617; 86618 ==

== ENCOUNTER → 2020-05-16 | Outpatient (CLI) | payer BC | LOC: OD 14:01 | PROVIDERS: ATTEND Family Medicine | DX: Z20.2 Contact with and (suspected) exposure to infections with a predominantly sexual mode of transmission (principal); N92.6 Irregular menstruation, unspecified | CPT/HCPCS: 36415; 84703; 86317; 86592; 86701; 86803; 86804; 87340 ==